=== PATIENT | male | born 1970 ===

== ENCOUNTER → 2018-10-03 21:05 | Outpatient (REF) | payer OTHER, SELFPAY ==
[2018-10-04 01:53] LABS: Add Manual Diff / Slide Review NO; Basophils Absolute Auto 0 /uL (0-100); Basophils Percent Auto 0.7 % (0-2); Eosinophils Absolute Auto 100 /uL (0-450); Eosinophils Percent Auto 1.4 % (2-4); Hematocrit 46.9 % (41-53); Hemoglobin 16.5 g/dL (13.5-17.5); Lymphocytes Absolute Auto 1500 /uL (1100-4500); Lymphocytes Percent Auto 29.3 % (25-40); Mean Corpuscular HGB Conc 35.2 % (30-36); Mean Corpuscular Hemoglobin 31.6 PG (26-34); Monocytes Absolute Auto 400 /uL (0-900); Monocytes Percent Auto 7.9 % (3-14); Neutrophils Absolute Auto 3100 /uL (1500-7000); Neutrophils Percent Auto 60.7 % (50-75); Platelet Count 254 X10^3/uL (150-400); Red Blood Cell Count 5.21 X10^6/uL (4.5-5.9); Red Cell Distribution Width 13.6 % (11.6-14.8)
[2018-10-04 03:47] LABS: Alanine Aminotransferase 67 IU/L (21-72); Albumin 4.6 g/dL (3.5-5.0); Albumin Globulin Ratio 1.6 (1.0-2.8); Alkaline Phosphatase 62 U/L (38-126); Aspartate Aminotransferase 42 IU/L (17-59); BUN Creatinine Ratio 16.3 (6-22); Bilirubin Total 1.2 mg/dL (0.2-1.3); Blood Urea Nitrogen 13 mg/dL (9-20); Calcium 9.4 mg/dL (8.4-10.2); Carbon Dioxide 27 mmol/L (22-32); Chloride 101 mmol/L (98-107); Estimated Glomerular Filt Rate > 60.0 mL/min (>60); Globulin 2.9 g/dL (1.7-4.1); Glucose 72 mg/dL (70-100); HEMOLYSIS < 15 (0-50); Potassium 4.4 mmol/L (3.4-5.1); Sodium 139 mmol/L (137-145); Total Protein 7.5 g/dL (6.3-8.2)
[2018-10-06 14:54] LABS: PSA Total 0.39 ng/mL (< 4.01)
[2018-10-07 13:52] LABS: Testosterone, Total 197.1
[2018-10-07 13:53] LABS: Testosterone,Free 5.6
[2018-10-07 16:46] LABS: Estradiol 21 pg/mL (< 40)
== END ==
LOC: LAB 21:05
PROVIDERS: Visit Provider Family Medicine
DX: E29.1 Testicular hypofunction (principal); Z13.89 Encounter for screening for other disorder
CPT/HCPCS: 36415; 80053; 82670; 84153; 84154; 84402; 84403; 85025